=== PATIENT | male | born 1955 ===

== ENCOUNTER 2021-01-16 16:09 | Outpatient (CLI) | payer BC | END 2021-01-16 16:10 | disposition critical access hospital (66) | LOC: EMS 16:09 | DX: I46.9 Cardiac arrest, cause unspecified (principal); R06.81 Apnea, not elsewhere classified | CPT/HCPCS: A0425; A0427 ==

== ENCOUNTER 2021-01-16 16:14 | Emergency (ER) | payer BC ==
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
--- NOTE | 2021-01-16 16:34 | ED Physician Documentation ---
ED Addendum - Addendum Addendum: 01/16/21 16:[address] Fields with blunt traumatic cardiac arrest code. He ran the code, it was noted that the patient did not have breath sounds on either side. Without specific prep or drape I quickly decompressed both sides of the chest with an 11 blade scalpel. There was no obvious hardin of air or blood from the left chest. It felt like there probably was some blood, but may be not lot in the right chest, also no hardin of air on the right.
== END 2021-01-16 16:18 | disposition expired ==
LOC: EDBD → ED 16:14
DX: I46.9 Cardiac arrest, cause unspecified (principal); S27.0XXA Traumatic pneumothorax, initial encounter; S48.11 Complete traumatic amputation at level between shoulder and elbow; S09.93XA Unspecified injury of face, initial encounter; V23.4XXA Motorcycle driver injured in collision with car, pick-up truck or van in traffic accident, initial encounter; Y92.410 Unspecified street and highway as the place of occurrence of the external cause
CPT/HCPCS: 92950; 99285